=== PATIENT | male | born 1990 | race Caucasian/White ===

== ENCOUNTER → 2016-07-20 | Outpatient (REF) | payer OTHER ==
[2016-07-20 09:35] LABS: #IMMOTILE SPERM COUNTED 0; #MOTILE SPERM COUNTED 0; % MOTILITY 0 (> 25%); SPERM ABNORMAL FORMS WBC'S NOTED; TOTAL # SPERM COUNTED 0 M/ml
== END | disposition home or self-care (01) ==
LOC: M LAB REF 09:03
PROVIDERS: ATTEND Family Medicine
DX: Z53.8 Procedure and treatment not carried out for other reasons (principal)

== ENCOUNTER → 2016-08-24 | Outpatient (REF) | payer OTHER ==
[2016-08-24 14:06] LABS: #IMMOTILE SPERM COUNTED 0; #MOTILE SPERM COUNTED 0; % MOTILITY 0 (> 25%); SPERM ABNORMAL FORMS WBC'S NOTED; TOTAL # SPERM COUNTED 0 M/ml
== END ==
LOC: M LAB REF 13:00
PROVIDERS: ATTEND Student in an Organized Health Care Education/Training Program
DX: Z53.8 Procedure and treatment not carried out for other reasons (principal)

== ENCOUNTER → 2016-11-02 | Outpatient (CLI) | payer OTHER ==
--- NOTE | 2016-11-03 04:13 | REP ---
Clinical: Azoospermia. Technique: Gonzáles scale and color Doppler evaluation using linear and curved array transducer with color Doppler evaluation. Findings: The testicles and epididymi are relatively normal in contour, size, echogenicity, vascularity and overall appearance/contour. Incidental note is made of a 2.2 mm right epididymal head cyst and small left hydrocele. A 6 mm calcification is identified with in the left richar scrotum consistent with benign scrotal juan antonio. There is no evidence for intratesticular mass lesion, infectious/inflammatory process, with torsion. Mild varicoceles are noted (left greater than right) measuring up to 3.9 mm diameter on Valsalva. Right testicle measures 4.4 x 1.8 x 2.6 cm. Left testicle measures 4.5 x 2.4 x 2.7 cm. Impression: Varicoceles (left greater than right) up to 3.9 mm diameter on Valsalva. Mild nonacute changes as described above. Otherwise normal appearance to the testicles and epididymi. Signed by Chevy Talbert MD 11/03/2016 04:05 A
== END ==
LOC: M RAD 07:53
PROVIDERS: ATTEND Nurse Practitioner Women's Health
DX: N46.029 Azoospermia due to other extratesticular causes (principal); N50.819 Testicular pain, unspecified; I86.1 Scrotal varices

== ENCOUNTER → 2016-11-22 | Outpatient (REF) | payer OTHER | LOC: M LAB REF 05:50 | PROVIDERS: ATTEND Nurse Practitioner Women's Health | DX: N46.029 Azoospermia due to other extratesticular causes (principal) ==

== ENCOUNTER → 2016-12-20 | Outpatient (CLI) | payer OTHER ==
[~2016-12-20] MED LIST: ADV500INH INH; BACT800T5 PO; BUSP10TA PO; LIDO1OIN2 TOP; LUNE2TAB23 PO; NAPR220C PO; PROAAER10 INH; SING10TA32 PO; TYLE650T35 PO
[2016-12-20 14:49] LABS: PROLACTIN 4.3 NG/ML (2.1-17.7)
[2016-12-20 14:50] LABS: LUTEINIZING HORMONE 5.9 mIU/mL (1.5-9.3)
[2016-12-20 14:51] LABS: ESTRADIOL 34.3 PG/ML (<39.8); FOLLICLE STIMULATING HORMONE 19.9 mIU/mL (1.4-18.1)
[2016-12-21 14:17] LABS: SEX HORMONE BINDING GLOBULIN 51.3 nmol/L (16.5-55.9)
== END ==
LOC: M LAB 13:08
PROVIDERS: ATTEND Urology
DX: N46.029 Azoospermia due to other extratesticular causes (principal)

== ENCOUNTER → 2017-01-16 | Outpatient (REF) | payer OTHER ==
[2017-01-16 20:27] LABS: ANION GAP 7 MEQ/L (8-16); BLOOD UREA NITROGEN 12 MG/DL (7-18); CALCIUM LEVEL 9.4 MG/DL (8.5-10.1); CARBON DIOXIDE LEVEL 27 MEQ/L (21-32); CHLORIDE LEVEL 102 MEQ/L (98-107); CREATININE FOR GFR 0.97 MG/DL (0.70-1.30); GLOMERULAR FILTRATION RATE > 60.0 (>60); GLUCOSE, FASTING 112 MG/DL (70-105); POTASSIUM SERUM 4.2 MEQ/L (3.5-5.1); SODIUM LEVEL 136 MEQ/L (136-145)
[2017-01-16 20:38] LABS: MEAN CORPUSCULAR HEMOGLOBIN 30.3 pg (27.0-33.0); MEAN CORPUSCULAR HGB CONC 34.1 g/dl (32.0-36.5); MEAN CORPUSCULAR VOLUME 89.1 fl (80.0-96.0); RED CELL DISTRIBUTION WIDTH 12.2 % (11.5-14.5); WHITE BLOOD COUNT 7.7 K/mm3 (4.0-10.0)
[2017-01-16 20:42] LABS: INR 0.88
== END ==
LOC: M LABSMT 14:25
PROVIDERS: ATTEND Urology
DX: I86.1 Scrotal varices (principal)

== ENCOUNTER 2017-02-13 09:29 | Day surgery (SDC) | payer OTHER ==
[~2017-02-13] VITALS: Ht 175.3 cm; Wt 102.1 kg
[~2017-02-13 09:29] MED LIST changes: -BACT800T5 PO; -TYLE650T35 PO
[2017-02-13] MEDS ORDERED: LR 1,000 ML IV SCH ×2 (09:45→13:30)
[2017-02-13] MEDS ORDERED: BUPIVACAINE HCL 0.25% 30 ML VIAL As Ordered ONE (10:50)
[2017-02-13] MEDS ORDERED: LIDOCAINE 2% MDV 20 ML VIAL As Ordered ONE (10:50)
[2017-02-13] MEDS ORDERED: MIDAZOLAM INJ 2 MG/2 ML VIAL (J2250) As Ordered ONE (11:04)
[2017-02-13] MEDS ORDERED: fentaNYL 250 MCG/5 ML INJECTION (J3010) As Ordered ONE (11:04)
[2017-02-13] MEDS ORDERED: LIDOCAINE 2% INJ 100 MG/5 ML SDV (FOR ANES.) As Ordered ONE (11:04)
[2017-02-13] MEDS ORDERED: PROPOFOL 200 MG/20 ML VIAL As Ordered ONE ×2 (11:04→12:53)
[2017-02-13] MEDS ORDERED: dexameTHASONE 4 MG/ML 1ML VIAL (J1100) As Ordered ONE (11:04)
[2017-02-13] MEDS ORDERED: KETOROLAC 60 MG/2 ML VIAL (J1885) As Ordered ONE (11:58)
[2017-02-13] MEDS ORDERED: ONDANSETRON 4MG/2ML VIAL (J2405) As Ordered ONE (11:58)
[2017-02-13] MEDS ORDERED: TYLE650T35 PO (12:31)
[2017-02-13] MEDS ORDERED: BACT800T5 PO (12:31)
[2017-02-13] MEDS ORDERED: PERCOCET 5MG/325MG TAB As Ordered ONE (13:11)
[2017-02-13] MEDS ORDERED: PERCOCET 5MG/325MG TAB PO PRN (13:30)
[2017-02-13] MEDS ORDERED: fentaNYL 100 MCG/2 ML INJECTION (J3010) IV PRN (13:30)
[2017-02-13] MEDS ORDERED: MORPHINE 2 MG/ML 1ML SYRINGE IV PRN (13:30)
[2017-02-13] MEDS ORDERED: METOCLOPRAMIDE INJ 10MG/2ML VIAL (J2765) IV PRN (13:30)
[2017-02-13] MEDS ORDERED: ONDANSETRON 4MG/2ML VIAL (J2405) IV PRN (13:30)
[2017-02-13 14:35] VITALS: BP 124/84
--- NOTE | 2017-02-17 13:52 | RO ---
DATE OF PROCEDURE: 02/13/2017 PREPROCEDURE DIAGNOSIS: Left varicocele, grade III. POSTPROCEDURE DIAGNOSIS: Left varicocele, grade III. SURGERY PERFORMED: Open left varicocelectomy. SURGEON: Rafa Perez MD ONCOLOGY SOCIAL WORKER: None. ANESTHESIA: General. COMPLICATIONS: None. ESTIMATED BLOOD LOSS: N/A. HISTORY OF PRESENT ILLNESS: This is a 27-year-old male patient that actually has a left varicocele, grade III. For this reason, he has consented for an open left varicocelectomy. DESCRIPTION OF PROCEDURE: With the patient in supine position under general anesthesia, after prepping and draping the area of concern, which included the entire genitalia, we did an incision above 4 cm in length in a transverse fashion in the left inguinal area. Through this incision, we opened with electro Bovie cautery, the Flako's and Camper's fascia. We then opened the external inguinal ring in a longitudinal fashion, following the lines of the external oblique fascia. We then proceeded to identify the spermatic cord. We opened tunica spermatic externa and identified a varicosity veins and the vas deferens. We dissected the varicosity of veins away from the vas deferens and preserved the vas deferens. We ligated the varicosity veins with #2-0 silk ties times two on each side and cut in the middle and sent the specimen for permanent pathology analysis. We then dropped the spermatic cord and closed the external oblique fascia in a running fashion with #3-0 Vicryl. We closed the Flako and Camper fascia with #3-0 chromic separate stitches and closed the skin with #4-0 Monocryl subcuticular stitches in a running fashion. We placed Mastisol, Steri-Strips, Telfa, and Tegaderm on top of the incision site. PLAN: The patient will go home with antibiotics and pain medication. Followup at [facility] [place] around 2 weeks. There were no complications during the surgery.
== END 2017-02-13 15:20 | disposition home or self-care (01) ==
LOC: M SDC 09:29
PROVIDERS: ATTEND Urology
DX: I86.1 Scrotal varices (principal); K21.9 Gastro-esophageal reflux disease without esophagitis; R06.02 Shortness of breath; M54.5 Low back pain; J45.909 Unspecified asthma, uncomplicated; R06.83 Snoring; G47.00 Insomnia, unspecified; Z91.040 Latex allergy status; Z91.09 Other allergy status, other than to drugs and biological substances; Z79.899 Other long term (current) drug therapy; Z87.81 Personal history of (healed) traumatic fracture; Z72.0 Tobacco use
CPT/HCPCS: 55530; 88304; J0690; J1100; J1885; J2250; J2405; J3010

== ENCOUNTER → 2017-03-27 | Outpatient (REF) | payer OTHER ==
[~2017-03-27] MED LIST changes: +BACT800T5 PO; +TYLE650T35 PO
[2017-03-27 09:49] LABS: #IMMOTILE SPERM COUNTED 0; #MOTILE SPERM COUNTED 0; % MOTILITY 0 (> 40%); TOTAL # SPERM COUNTED 0 M/ml
== END ==
LOC: M SMT 09:00
PROVIDERS: ATTEND Nurse Practitioner Women's Health
DX: Z53.8 Procedure and treatment not carried out for other reasons (principal)